=== PATIENT | male | born 1965 | race Caucasian/White ===

== ENCOUNTER 2017-04-11 07:27 | Emergency (ER) | payer OTHER | END 2017-04-11 09:55 | disposition home or self-care (01) | LOC: ER1 07:27 | DX: S62.634B Displaced fracture of distal phalanx of right ring finger, initial encounter for open fracture (principal); F41.9 Anxiety disorder, unspecified; F17.210 Nicotine dependence, cigarettes, uncomplicated; Z79.899 Other long term (current) drug therapy; X58.XXXA Exposure to other specified factors, initial encounter | CPT/HCPCS: 73140; 99283 ==